=== PATIENT | female | born 1995 | race Asian ===

== ENCOUNTER 2020-07-15 02:35 | Emergency (ER) | payer OTHER ==
[~2020-07-15] VITALS: Ht 152.4 cm; Wt 48.1 kg
[2020-07-15 02:43] VITALS: BP 102/63
--- NOTE | 2020-07-15 02:46 | NUR ---
PT AMBULATED TO BED 04 WITH STEADY GAIT.
--- NOTE | 2020-07-15 02:52 | NUR ---
24 Y/O FEMALE BIB SELF FOR C/O OF RASH/HIVES THROUGHOUT THE BODY. PER PT, SHE NOTICED THIS 2 NIGHTS AGO BUT RECENTLY BECAME WORSE. SHE STATES, SHE IS BUT UNSURE OF LENGTH OF . REPORTS TAKING OTC MEDS FOR THE HIVES/RASH (BENADRYL & CORTISONE OINTMENT) WITH INEFFECTIVE RESULTS. SHE ALSO REPORTS THAT RASHES COME AND GO THROUGH THE DAY. DENIED HAVING ANY CHANGES IN HER DIET, OR ANY NEW LAUNDRY DETERGENT. SHE IS BREATHING EVEN AND UNLABORED EVIDENCE BY RISE AND FALL OF CHEST WALL. IN NO ACUTE DISTRESS NOTED. DENIES ANY SOB, N/VD A THIS TIME. BED WAS LOCKED AND PLACED IN LOWEST POSITION. MEDHX: DENIES NKA
--- NOTE | 2020-07-15 03:09 | NUR ---
ER MD AT BEDSIDE WITH FEMALE NURSE XIAO RN FOR EVALUATION.
--- NOTE | 2020-07-15 03:30 | NUR ---
ESTER GUTIERREZ RE-EVALUATING PT AT BEDSIDE AT THIS TIME.
[2020-07-15 03:51] VITALS: BP 102/63
--- NOTE | 2020-07-15 03:51 | NUR ---
Patient discharged with v/s stable. Written and verbal after care instructions given and explained. Patient alert, oriented and verbalized understanding of instructions. Ambulatory with steady gait. All questions addressed prior to discharge. ID band removed. Patient advised to follow up with PMD. Rx of PEPCID & DIPHENHYDRAMINE given. Patient educated on indication of medication including possible reaction and side effects. Opportunity to ask questions provided and answered.
== END 2020-07-15 03:51 | disposition home or self-care (01) ==
LOC: MED 02:35
DX: L50.9 Urticaria, unspecified (principal)
CPT/HCPCS: 99282